=== PATIENT | male | born 1980 | race Caucasian/White ===

== ENCOUNTER 2020-11-24 20:21 | Emergency (ER) | payer BC, OTHER ==
[2020-11-24 20:42] VITALS: TEMP 97.8; BMI 29.7
[2020-11-24] MEDS ORDERED: KETOROLAC TROMETHAMINE 30 MG/1 ML VIAL IM ONE (21:26)
[2020-11-24] MEDS ORDERED: KETOROLAC TROMETHAMINE 30 MG/1 ML VIAL ONE (21:28)
[2020-11-24 22:44] LABS: PH,URINE 7.5 (5.0-8.0); URINE APPEARANCE Clear; URINE BILIRUBIN Negative (NEGATIVE); URINE COLOR Yellow; URINE GLUCOSE (UA) Trace (NEGATIVE); URINE KETONE Negative (NEGATIVE); URINE LEUK ESTERASE Negative (NEGATIVE); URINE NITRITE Negative (NEGATIVE); URINE PROTEIN Negative (NEGATIVE); URINE UROBILINOGEN 0.2 mg/dL (0.2-1.0)
[2020-11-24 23:13] VITALS: BP 152/100; PULSE 70
== END 2020-11-24 23:13 | disposition home or self-care (01) ==
LOC: JER 20:21
PROC: 3E0233Z Introduction of Anti-inflammatory into Muscle, Percutaneous Approach (ICD-10-PCS; principal; 2020-11-24)
DX: R07.81 Pleurodynia (principal); M54.5 Low back pain
CPT/HCPCS: 71046-TC-FY; 71101-TC-LT-FY; 81003; 87086; 99284-25